=== PATIENT | female | born 2000 | race Two or more races ===

== ENCOUNTER 2024-05-08 17:02 | Emergency (ER) | payer MEDICAID, OTHER ==
[~2024-05-08] VITALS: Ht 165.1 cm; Wt 92.7 kg
[2024-05-08 20:24] VITALS: BP 114/71; PULSE 76; RESP 20; TEMP 98.4; O2SAT 96
[2024-05-08] MEDS ORDERED: HYDR-4902 PO (20:49)
[2024-05-08] MEDS: HYDROcodone-ACET 5/325MG TAB PO ONE (20:53)
== END 2024-05-08 21:00 | disposition home or self-care (01) ==
LOC: ER 17:02
DX: S93.691A Other sprain of right foot, initial encounter (principal); W20.8XXA Other cause of strike by thrown, projected or falling object, initial encounter; Y93.89 Activity, other specified; Y92.89 Other specified places as the place of occurrence of the external cause; Y99.8 Other external cause status
CPT/HCPCS: 73630

== ENCOUNTER 2024-05-17 10:44 | Inpatient (IN) | payer MEDICAID ==
[~2024-05-17] VITALS: Ht 165.1 cm; Wt 89.5 kg
[~2024-05-17 10:44] MED LIST: HYDR-4902 PO
[2024-05-17] MEDS: SODIUM CHLORIDE 0.9% 1,000 ML IV ONE ×2 (11:00→15:15)
[2024-05-17] MEDS: ONDANSETRON HCL 4 MG/2 ML VIAL IV ONE (11:42)
[2024-05-17] MEDS: HYDROmorphone HCL 2 MG/ML VL/or syr IV ONE ×3 (11:43→14:20)
[2024-05-17 11:44] LABS: Chloride 107 mmol/L (98-107); Potassium 4.1 mmol/L (3.5-5.1); Sodium 139 mmol/L (136-145)
[2024-05-17 11:45] LABS: Anion Gap 6 (5-15); Carbon Dioxide 26 mmol/L (20-30); Hemoglobin 8.4 g/dL (12.2-16.2)
[2024-05-17 11:46] LABS: Calcium 9.2 mg/dL (8.7-10.4)
[2024-05-17 11:48] LABS: Hematocrit 25.1 % (36.0-46.0); Mean Corpuscular Hemoglobin 31.9 pg (28.0-32.0); Mean Corpuscular Hgb Conc. 33.6 g/dL (32.0-36.0); Platelet Count (auto) 591 10^3/uL (140-450); Red Blood Cells 2.64 10^6/uL (4.0-5.20); White Blood Cell 23.6 10^3/uL (4.4-10.8)
[2024-05-17 11:50] LABS: Blood Urea Nitrogen 8 mg/dL (9-23); Glucose 119 mg/dL (74-106)
[2024-05-17 11:59] LABS: Red Cell Distribution Width 28.3 % (11.8-14.3)
[2024-05-17 12:00] VITALS: PULSE 78; RESP 20; O2SAT 97
[2024-05-17 12:00] LABS: Basophils % (manual) 0 (0.0-2.0); Blast Cells 0; Eosinophils % (manual) 0 (0-7); Myelocytes % 0; Promyelocytes % 0; Reactive Lymphocytes 0
[2024-05-17 12:07] LABS: Partial Thromboplastin Time 25.6 SEC (24.5-34.5); Prothrombin Time 10.6 sec (9.3-11.8)
[2024-05-17 13:35] LABS: Band Neutrophils % (manual) 6; Lymphocytes % (manual) 22 (10.0-50.0); Metamyelocytes % 5; Monocytes % (manual) 8 (0-12); Platelet Estimate Increased; Sickle Cells MODERATE
[2024-05-17 13:37] LABS: Anisocytosis Moderate; Target Cell FEW
[2024-05-17 13:47] LABS: Urine Bacteria FEW /hpf (None Seen); Urine Blood TRACE /uL (Negative); Urine Budding Yeast OCCASIONAL /hpf (None Seen); Urine Clarity Turbid (Clear); Urine Color Yellow (Yellow); Urine Protein, UAD 2+ (Negative); Urine Specific Gravity 1.009 (1.001-1.035); Urine Urobilinogen Normal (Negative); Urine WBC 5 /hpf (0 - 5); Urine pH 6.5 (5.0-9.0)
[2024-05-17 14:45] VITALS: PULSE 78; RESP 20; O2SAT 97
[2024-05-17] MEDS: MORPHINE SULFATE 4 MG/ML SYR/VIAL IV ONE (15:15)
[2024-05-17] MEDS ORDERED: ONDANSETRON HCL 4 MG/2 ML VIAL IV PRN (15:30)
[2024-05-17] MEDS ORDERED: NITROGLYCERIN 0.4 MG SL TAB SL PRN (16:00)
[2024-05-17] MEDS ORDERED: MORPHINE SULFATE INJ 2 MG/ml SYRG IV PRN (16:00)
[2024-05-17] MEDS: cefTRIAXone 1GM/50ML D5W 50 ML IV ONE (16:25)
[2024-05-17] MEDS: HYDROmorphone HCL 2 MG/ML VL/or syr IV PRN (16:33)
[2024-05-17] MEDS: SODIUM CHLORIDE 0.9% 1,000 ML IV SCH (16:39)
[2024-05-17] MEDS: HYDROcodone-ACET 5/325MG TAB PO PRN (17:30)
[2024-05-17 19:30] VITALS: PULSE 93; RESP 17; O2SAT 97
[2024-05-17 21:50] VITALS: BP 150/79; PULSE 88; RESP 17; TEMP 98.8; O2SAT 99
[2024-05-17 22:00] VITALS: BP 149/78; PULSE 89; RESP 16; TEMP 98.7; O2SAT 99
[2024-05-17 22:14] VITALS: BP 150/79; PULSE 88; RESP 17; TEMP 98.8; O2SAT 99
[2024-05-17] MEDS ORDERED: FOLITAB22 PO (22:42)
[2024-05-18] VITALS (8 sets, daily range): BP systolic 109–149; BP diastolic 47–83; PULSE 74–91; RESP 16–20; TEMP 97.3–98.5; O2SAT 94–100
[2024-05-18 07:29] LABS: Mean Corpuscular Volume 92.6 fL (80.0-100.0)
[2024-05-18 07:33] LABS: Hematocrit 22.6 % (36.0-46.0); Hemoglobin 7.6 g/dL (12.2-16.2); Mean Corpuscular Hemoglobin 31.1 pg (28.0-32.0); Mean Corpuscular Hgb Conc. 33.6 g/dL (32.0-36.0); Platelet Count (auto) 454 10^3/uL (140-450); Red Blood Cells 2.44 10^6/uL (4.0-5.20); White Blood Cell 25.4 10^3/uL (4.4-10.8)
[2024-05-18 07:37] LABS: Red Cell Distribution Width 25.2 % (11.8-14.3)
[2024-05-18 07:38] LABS: Band Neutrophils % (manual) 0; Basophils % (manual) 0 (0.0-2.0); Blast Cells 0; Eosinophils % (manual) 0 (0-7); Metamyelocytes % 0; Myelocytes % 0; Promyelocytes % 0; Reactive Lymphocytes 0
[2024-05-18 07:55] LABS: Alanine Aminotransferase 85 U/L (7-40); Alkaline Phosphatase 108 U/L (46-116); Anion Gap 7 (5-15); BUN/Creatinine Ratio 19.4 (10.0-20.0); Blood Urea Nitrogen 7 mg/dL (9-23); Calcium 9.3 mg/dL (8.7-10.4); Carbon Dioxide 26 mmol/L (20-30); Chloride 103 mmol/L (98-107); Glucose 131 mg/dL (74-106); Potassium 3.7 mmol/L (3.5-5.1); Sodium 136 mmol/L (136-145)
[2024-05-18 07:56] LABS: Albumin 3.9 g/dL (3.2-4.8); Aspartate Aminotransferase 68 U/L (13-40)
[2024-05-18 07:57] LABS: Total Protein 7.2 g/dL (5.7-8.2)
[2024-05-18 08:02] LABS: Lymphocytes % (manual) 11 (10.0-50.0); Monocytes % (manual) 6 (0-12); Platelet Estimate Increased
[2024-05-18 08:03] LABS: Anisocytosis Moderate; Sickle Cells MODERATE
[2024-05-18] MEDS: MORPHINE SULFATE INJ 2 MG/ml SYRG IV PRN (09:08)
[2024-05-18] MEDS: cefTRIAXone 1GM/50ML D5W 50 ML IV SCH (09:08)
[2024-05-18] MEDS: FAMOTIDINE (10MG/ML) 2ML VL IV SCH (09:08)
[2024-05-18] MEDS: hydroxyUREA 500 MG CAP PO SCH (10:00)
[2024-05-18] MEDS: HYDROmorphone HCL 2 MG/ML VL/or syr IV PRN (13:38)
[2024-05-18] MEDS: SODIUM CHLORIDE 0.9% 1,000 ML IV SCH (14:45)
[2024-05-18 20:00] LABS: Basophils # (auto) 0.1 10 ^3/uL (0-0.2); Lymphocytes # (auto) 2.5 10 ^3/uL (0.4-5.4); Monocytes # (auto) 1.9 10 ^3/uL (0-1.3); Monocytes % (auto) 7.7 % (0.0-12.0); Neutrophils # (auto) 20.2 10 ^3/uL (1.6-8.6); Neutrophils % (auto) 81.7 % (37.0-80.0); White Blood Cell 24.7 10^3/uL (4.4-10.8)
[2024-05-18 20:03] LABS: Basophils % (auto) 0.4 % (0.0-2.0); Eosinophils # (auto) 0.1 10 ^3/uL (0-0.8); Eosinophils % (auto) 0.2 % (0.0-7.0); Hematocrit 23.3 % (36.0-46.0); Hemoglobin 7.9 g/dL (12.2-16.2); Mean Corpuscular Hemoglobin 31.8 pg (28.0-32.0); Mean Corpuscular Hgb Conc. 33.8 g/dL (32.0-36.0); Mean Corpuscular Volume 94.1 fL (80.0-100.0); Platelet Count (auto) 500 10^3/uL (140-450); Red Blood Cells 2.48 10^6/uL (4.0-5.20)
[2024-05-18 20:14] LABS: Nucleated Red Blood Cells % 7.8 %; Red Cell Distribution Width 24.7 % (11.8-14.3)
[2024-05-18] MEDS: DOCUSATE SOD 100 MG CAP PO PRN (21:22)
[2024-05-18] MEDS: METOPROLOL SUCCINATE XL 50 MG TAB PO ONE (21:22)
[2024-05-18 21:57] LABS: Anisocytosis Moderate; Large Platelets FEW; Platelet Estimate Increased; Polychromasia Slight; Sickle Cells MODERATE
[2024-05-18 21:58] LABS: Target Cell FEW
[2024-05-19] VITALS (8 sets, daily range): BP systolic 139–145; BP diastolic 64–83; PULSE 81–109; RESP 18–19; TEMP 98.6–100.1; O2SAT 94–98
[2024-05-19] MEDS: METOPROLOL SUCCINATE XL 50 MG TAB PO SCH (09:15)
[2024-05-19 11:06] LABS: Basophils # (auto) 0.2 10 ^3/uL (0-0.2); Eosinophils # (auto) 0 10 ^3/uL (0-0.8); Eosinophils % (auto) 0.1 % (0.0-7.0)
[2024-05-19 11:08] LABS: Basophils % (auto) 0.6 % (0.0-2.0); Hematocrit 23.1 % (36.0-46.0); Hemoglobin 7.9 g/dL (12.2-16.2); Lymphocytes # (auto) 2.1 10 ^3/uL (0.4-5.4); Lymphocytes % (auto) 8.5 % (10.0-50.0); Mean Corpuscular Hemoglobin 31.6 pg (28.0-32.0); Mean Corpuscular Hgb Conc. 34.4 g/dL (32.0-36.0); Monocytes # (auto) 1.5 10 ^3/uL (0-1.3); Monocytes % (auto) 6.1 % (0.0-12.0); Neutrophils # (auto) 20.8 10 ^3/uL (1.6-8.6); Neutrophils % (auto) 84.7 % (37.0-80.0); Platelet Count (auto) 476 10^3/uL (140-450); Red Blood Cells 2.51 10^6/uL (4.0-5.20)
[2024-05-19 11:28] LABS: Alanine Aminotransferase 63 U/L (7-40); Albumin 3.8 g/dL (3.2-4.8); Alkaline Phosphatase 162 U/L (46-116); Anion Gap 7 (5-15); Aspartate Aminotransferase 65 U/L (13-40); Blood Urea Nitrogen 6 mg/dL (9-23); Calcium 9.2 mg/dL (8.7-10.4); Carbon Dioxide 27 mmol/L (20-30); Chloride 101 mmol/L (98-107); Glucose 113 mg/dL (74-106); Potassium 3.3 mmol/L (3.5-5.1); Sodium 135 mmol/L (136-145)
[2024-05-19 11:29] LABS: Magnesium 2.1 mg/dL (1.6-2.6)
[2024-05-19 11:30] LABS: Bilirubin, Total 10.6 mg/dL (0.2-1.0); Total Protein 7.2 g/dL (5.7-8.2)
[2024-05-19 11:33] LABS: Nucleated Red Blood Cells % 5.3 %; Red Cell Distribution Width 23.3 % (11.8-14.3)
[2024-05-19 11:34] LABS: White Blood Cell 24.5 10^3/uL (4.4-10.8)
[2024-05-19 11:41] LABS: BUN/Creatinine Ratio 16.2 (10.0-20.0)
[2024-05-19] MEDS: IBUPROFEN 800 MG TAB PO SCH (11:41)
[2024-05-19] MEDS: FOLIC ACID 1 MG in D5W 5% 50 ML INJ ONE (13:11)
[2024-05-19] MEDS: POTASSIUM CHL 20MEQ/100ML 100 ML IV SCH (14:44)
[2024-05-20] VITALS (8 sets, daily range): BP systolic 111–150; BP diastolic 47–78; PULSE 91–113; RESP 17–20; TEMP 98.7–101.3; O2SAT 94–97
[2024-05-20] MEDS: ACETAMINOPHEN 325 MG TAB PO PRN (04:15)
[2024-05-20 08:59] LABS: Hemoglobin 7.2 g/dL (12.2-16.2); Monocytes # (auto) 1.6 10 ^3/uL (0-1.3)
[2024-05-20 09:02] LABS: Basophils # (auto) 0.2 10 ^3/uL (0-0.2); Basophils % (auto) 0.9 % (0.0-2.0); Eosinophils # (auto) 0.1 10 ^3/uL (0-0.8); Eosinophils % (auto) 0.3 % (0.0-7.0); Hematocrit 21.4 % (36.0-46.0); Lymphocytes # (auto) 4.6 10 ^3/uL (0.4-5.4); Lymphocytes % (auto) 18.2 % (10.0-50.0); Mean Corpuscular Hemoglobin 30.7 pg (28.0-32.0); Mean Corpuscular Hgb Conc. 33.5 g/dL (32.0-36.0); Mean Corpuscular Volume 91.4 fL (80.0-100.0); Monocytes % (auto) 6.2 % (0.0-12.0); Neutrophils # (auto) 18.7 10 ^3/uL (1.6-8.6); Neutrophils % (auto) 74.4 % (37.0-80.0); Nucleated Red Blood Cells % 1.8 %; Platelet Count (auto) 438 10^3/uL (140-450); Red Blood Cells 2.34 10^6/uL (4.0-5.20); White Blood Cell 25.1 10^3/uL (4.4-10.8)
[2024-05-20 09:23] LABS: Alanine Aminotransferase 44 U/L (7-40); Albumin 3.5 g/dL (3.2-4.8); Alkaline Phosphatase 152 U/L (46-116); Anion Gap 8 (5-15); Aspartate Aminotransferase 35 U/L (13-40); Calcium 8.9 mg/dL (8.7-10.4); Carbon Dioxide 24 mmol/L (20-30); Chloride 104 mmol/L (98-107); Glucose 112 mg/dL (74-106); Potassium 3.4 mmol/L (3.5-5.1); Sodium 136 mmol/L (136-145)
[2024-05-20 09:24] LABS: Bilirubin, Total 10.5 mg/dL (0.2-1.0); Total Protein 6.6 g/dL (5.7-8.2)
[2024-05-20 09:27] LABS: BUN/Creatinine Ratio 15.6 (10.0-20.0); Blood Urea Nitrogen < 5 mg/dL (9-23)
[2024-05-20] MEDS: FOLIC ACID 1 MG in D5W 5% 50 ML INJ SCH (09:33)
[2024-05-20] MEDS: POTASSIUM CHL 20 Meq TABLET PO ONE (11:42)
[2024-05-20] MEDS: SODIUM CHLORIDE 0.9% 1,000 ML IV SCH (11:45)
[2024-05-20] MEDS: D5W/SOD CHLO 0.9% 1,000 ML IV SCH (16:15)
[2024-05-20] MEDS: PIPERACILLIN-TAZOB 3.375GM 100 ML IV SCH (17:22)
[2024-05-21] VITALS (11 sets, daily range): BP systolic 113–134; BP diastolic 49–90; PULSE 93–108; RESP 12–28; TEMP 98–99.9; O2SAT 93–97
[2024-05-21 06:28] LABS: Basophils # (auto) 0.2 10 ^3/uL (0-0.2); Basophils % (auto) 0.9 % (0.0-2.0); Eosinophils # (auto) 0.1 10 ^3/uL (0-0.8); Mean Corpuscular Volume 89.8 fL (80.0-100.0)
[2024-05-21 06:31] LABS: Eosinophils % (auto) 0.4 % (0.0-7.0); Hematocrit 18.6 % (36.0-46.0); Lymphocytes # (auto) 3.1 10 ^3/uL (0.4-5.4); Lymphocytes % (auto) 17.1 % (10.0-50.0); Mean Corpuscular Hemoglobin 30.3 pg (28.0-32.0); Mean Corpuscular Hgb Conc. 33.8 g/dL (32.0-36.0); Monocytes # (auto) 1.1 10 ^3/uL (0-1.3); Neutrophils # (auto) 13.8 10 ^3/uL (1.6-8.6); Neutrophils % (auto) 75.6 % (37.0-80.0); Platelet Count (auto) 432 10^3/uL (140-450); Red Blood Cells 2.07 10^6/uL (4.0-5.20); White Blood Cell 18.2 10^3/uL (4.4-10.8)
[2024-05-21 06:39] LABS: Nucleated Red Blood Cells % 3.2 %
[2024-05-21 06:40] LABS: Hemoglobin 6.3 g/dL (12.2-16.2)
[2024-05-21 06:50] LABS: Alanine Aminotransferase 34 U/L (7-40); Albumin 3.5 g/dL (3.2-4.8); Alkaline Phosphatase 149 U/L (46-116); Anion Gap 8 (5-15); Anisocytosis Slight; Aspartate Aminotransferase 26 U/L (13-40); Blood Urea Nitrogen 6 mg/dL (9-23); Carbon Dioxide 24 mmol/L (20-30); Chloride 106 mmol/L (98-107); Glucose 110 mg/dL (74-106); Hypochromia Moderate; Potassium 3.3 mmol/L (3.5-5.1); Sickle Cells FEW; Sodium 138 mmol/L (136-145)
[2024-05-21 06:51] LABS: Bilirubin, Total 10.9 mg/dL (0.2-1.0); Target Cell MODERATE; Total Protein 6.6 g/dL (5.7-8.2)
[2024-05-21 06:52] LABS: Polychromasia Slight
[2024-05-21 06:53] LABS: Platelet Estimate Adequate
[2024-05-21 06:58] LABS: BUN/Creatinine Ratio 18.2 (10.0-20.0)
[2024-05-21] MEDS: FOLIC ACID 1 MG TAB PO SCH (08:51)
[2024-05-21] MEDS: diphenhdrAMINE HCL 25 MG CAP PO ONE (10:16)
[2024-05-21 18:41] LABS: Hematocrit 22.3 % (36.0-46.0); Hemoglobin 7.5 g/dL (12.2-16.2)
[2024-05-21] MEDS: PIPERACILLIN-TAZOB 3.375GM 100 ML IV SCH (21:27)
[2024-05-22] VITALS (14 sets, daily range): BP systolic 118–138; BP diastolic 49–77; PULSE 80–105; RESP 16–20; TEMP 97.8–99.2; O2SAT 94–100
[2024-05-22 08:29] LABS: Urine Bacteria FEW /hpf (None Seen); Urine Blood Negative /uL (Negative); Urine Protein, UAD TRACE (Negative); Urine Specific Gravity 1.011 (1.001-1.035); Urine Urobilinogen 12 mg/dL (Negative); Urine WBC 1 /hpf (0 - 5)
[2024-05-22 08:31] LABS: Urine Clarity Clear (Clear); Urine Color Yellow (Yellow)
[2024-05-22 09:53] LABS: Hematocrit 20.9 % (36.0-46.0); Mean Corpuscular Hemoglobin 28.9 pg (28.0-32.0); Mean Corpuscular Hgb Conc. 32.7 g/dL (32.0-36.0); Mean Corpuscular Volume 88.6 fL (80.0-100.0); Platelet Count (auto) 436 10^3/uL (140-450); Red Blood Cells 2.36 10^6/uL (4.0-5.20); White Blood Cell 13.7 10^3/uL (4.4-10.8)
[2024-05-22 09:58] LABS: Red Cell Distribution Width 21.2 % (11.8-14.3)
[2024-05-22 10:00] LABS: Hemoglobin 6.8 g/dL (12.2-16.2)
[2024-05-22 10:01] LABS: Basophils % (manual) 0 (0.0-2.0); Blast Cells 0; Metamyelocytes % 0; Myelocytes % 0; Promyelocytes % 0; Reactive Lymphocytes 0
[2024-05-22 10:04] LABS: Alanine Aminotransferase 40 U/L (7-40); Albumin 3.4 g/dL (3.2-4.8); Alkaline Phosphatase 156 U/L (46-116); Anion Gap 6 (5-15); Aspartate Aminotransferase 34 U/L (13-40); Bilirubin, Total 8.4 mg/dL (0.2-1.0); Calcium 8.7 mg/dL (8.7-10.4); Carbon Dioxide 26 mmol/L (20-30); Chloride 107 mmol/L (98-107); Glucose 105 mg/dL (74-106); Sodium 139 mmol/L (136-145); Total Protein 6.5 g/dL (5.7-8.2)
[2024-05-22 10:06] LABS: BUN/Creatinine Ratio 14.7 (10.0-20.0); Blood Urea Nitrogen < 5 mg/dL (9-23)
[2024-05-22 10:28] LABS: Band Neutrophils % (manual) 2; Eosinophils % (manual) 2 (0-7); Lymphocytes % (manual) 19 (10.0-50.0); Monocytes % (manual) 9 (0-12)
[2024-05-22 10:29] LABS: Anisocytosis Slight; Giant Platelets Few; Platelet Estimate Adequate; Polychromasia Slight; Target Cell FEW; Tear Drop Cells FEW
[2024-05-22] MEDS: POTASSIUM EFFERVESENT TAB 25 MEQ GT ONE (10:33)
[2024-05-22] MEDS: MAGNESIUM SULFATE 1GM/100ML 100 ML IV ONE (17:00)
[2024-05-22 22:42] LABS: Hematocrit 25.2 % (36.0-46.0); Hemoglobin 8.4 g/dL (12.2-16.2)
[2024-05-23] MEDS: KETOROLAC TROMETH 30 MG/ML 1ML VIAL IV ONE (00:05)
[2024-05-23] MEDS: HYDROcodone-ACET 7.5/325MG TAB PO PRN (01:56)
[2024-05-23 05:00] VITALS: BP 104/51; PULSE 71; RESP 18; TEMP 97.8; O2SAT 98
[2024-05-23 08:00] VITALS: PULSE 81; PULSE 86; RESP 20; O2SAT 96
[2024-05-23 09:00] VITALS: BP 132/75; PULSE 81; RESP 20; TEMP 98.8; O2SAT 96
[2024-05-23] MEDS ORDERED: FOLI-119 PO (09:39)
[2024-05-23] MEDS ORDERED: HYDR1TAB97 PO (09:39)
[2024-05-23 10:17] VITALS: BP 132/75; PULSE 81; RESP 20; TEMP 98.8; O2SAT 96
[2024-05-23] MEDS: POTASSIUM CHLORIDE 20 MEQ in D5W/LACTATED RINGERS 1,000 ML IV SCH (10:31)
[2024-05-25 12:46] LABS: Anti-Nuclear Antibody Direct Negative (Negative)
[2024-05-25 12:47] LABS: CCP IgG/IgA Antibody 4 units (0-19)
== END 2024-05-23 11:30 | disposition home or self-care (01) | DRG 662 ==
LOC: ER 10:44 → EDBD 10:44 → TELE 16:00 → TELE-CENTR 21:00
PROVIDERS: ADMIT Internal Medicine; ATTEND Internal Medicine
PROC: 05HF33Z Insertion of Infusion Device into Left Cephalic Vein, Percutaneous Approach (ICD-10-PCS; 2024-05-20)
PROC: B54NZZA Ultrasonography of Left Upper Extremity Veins, Guidance (ICD-10-PCS; 2024-05-20)
PROC: 30233N1 Transfusion of Nonautologous Red Blood Cells into Peripheral Vein, Percutaneous Approach (ICD-10-PCS; principal; 2024-05-21)
DX: D57.00 Hb-SS disease with crisis, unspecified (principal); R65.10 Systemic inflammatory response syndrome (SIRS) of non-infectious origin without acute organ dysfunction; D75.839 Thrombocytosis, unspecified; N39.0 Urinary tract infection, site not specified; M25.462 Effusion, left knee; M25.461 Effusion, right knee; R74.01 Elevation of levels of liver transaminase levels; E66.01 Morbid (severe) obesity due to excess calories; I49.3 Ventricular premature depolarization; Z83.2 Family history of diseases of the blood and blood-forming organs and certain disorders involving the immune mechanism; Z79.899 Other long term (current) drug therapy; Z68.35 Body mass index [BMI] 35.0-35.9, adult
CPT/HCPCS: 36415; 71045; 76700; 76881; 80048; 80053; 81001; 82248; 83021; 83615; 83735; 84550; 84702; 85007; 85014; 85018; 85025; 85027; 85045; 85610; 85660; 85730; 86038; 86200; 86850; 86900; 86901; 86920; 87040; 87081; 87086; 93005; 93306; 93926; 93970; 96365; 96375; G0378; J1885; J2405; J2543; J3480; J3490; J7042; J7060